=== PATIENT | female | born 1940 | race Caucasian/White ===

== ENCOUNTER 2023-03-04 14:50 | Outpatient (AMB) | payer MEDICARE, SELFPAY ==
--- NOTE | 2023-03-04 15:20 | MHC.OFFVIS ---
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: Memory Loss (11/20 LVM+LTR)-Confirmed Intake Note: Patient presents for a New patient visit-Memory loss Public Health Registrar Required: No Accompanied by: Self / Same As Patient Allergies No Known Allergies Allergy (Verified 03/04/23 15:21) Medication List - Last Reconciled 03/04/23 by SUBHASH Ibrahim glucosamine-chondroitin 167-133 mg caps PO TID levothyroxine 75 mcg PO DAILY magnesium oxide 400 mg PO DAILY multivitamin 1 tab PO DAILY omeprazole 20 mg PO DAILY pravastatin 20 mg PO DAILY sertraline 100 mg PO DAILY HPI HPI Comments History of Present Illness Details 82-yr-old female presents for neurological evaluation of cognitive difficulties, however pt is most concerned w/ her difficulty sleeping. Pt reports she is having age-related memory changes. She lives alone. Her has in 2010. Her dtr and son lives close by. She states she is Ind w/ ADLs, IADLs, lawn care, etc. She does drive- denies any near accidents. Denies difficulty paying her bills. Denies difficulties managing her medications- does use a pill box. She may occasionally misplace her phone. She is most concerned about her sleep, which started about a yr ago. She does not increased stress in the last yr- sister is ill, family issues. She easily falls asleep, but has trouble staying asleep- sometimes to void and may or may not easily fall back asleep. Goes to bed around 7:30pm and gets up at 4:30am. She becomes tired in the afternoon- sits in her recliner, may doze off a bit. She starts winding down around 5pm. Coffee intake- 3 coffees/ per day between 5-7am. 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 Tried Melatonin- did not help. Denies snoring, acid reflux, dry mouth, gasping arousals, nocturnal leg cramps. Voids 0-1 x per night. Has never had a sleep study- she is not interested. She was having very brief sharp pains in various spots in the head- this is better since trying Magnesium. She does yoga and stretching programs at the [facility]. She wants to start doing the elliptical again- felt better when she was doing that. 11/07/22, MRI Brain w/o: IMPRESSION: 1. Mild parenchymal volume loss/atrophy. 2. 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 3. Loss of the nondominant right vertebral artery flow-void which may be due to slow flow secondary to upstream stenosis or occlusion. 2019, Echocardiogram: Summary Normal LV systolic function (EF 55-65%). Normal LV diastolic function. Normal LV size. Normal LV wall thickness. Normal RV systolic function. Normal size RV. The inferior vena cava is collapsed (suggestive of low CVP). [facility] Medical History (Updated 03/09/23 @ 17:26 by SUBHASH Ibrahim) Cold sore OAB (overactive bladder) Ruptured silicone breast implant Hypothyroidism History of retinal vein occlusion Surgical History (Updated 03/09/23 @ 17:26 by SUBHASH Ibrahim) H/O mastopexy History of breast augmentation History of hysterectomy History of cataract surgery H/O eye surgery History of knee replacement Family History Mother Lung cancer Father Cancer Brother Cancer Social History (Updated 03/04/23 @ 15:30 by Kourtney Villanueva MA) Alcohol intake: never Patient Tobacco Use Status: Never used Tobacco Use of substances other than those prescribed or required for medical reasons: No Review of Systems Const All systems reviewed & are unremarkable except as noted in HPI and below Physical Exam Vital Signs: Last Vital Signs Pulse 103 H 03/04/23 15:27 BP 120/70 03/04/23 15:27 Pulse Ox 95 03/04/23 15:27 Oxygen Delivery Method Room Air 03/04/23 15:27 BMI result Body Mass Index 25.3 Const General: cooperative and no acute distress Orientation/consciousness: patient oriented x3 HEENT Head: Yes normocephalic Resp Effort & Inspection: normal respiratory effort and able to speak in complete sentences Neuro General: patient oriented x3, CN's II-XI intact bilaterally and deep tendon reflexes 2+ bilaterally Gait exam (Neuro): Normal gait present Motor exam (neuro): 5/5 motor strength present throughout Psych Appearance: grossly normal Mental Status: mental status grossly normal Speech and movement: Normal speech and movement present Affect: normal affect Attitude: cooperative Thought process: Normal thought process present Assessment & Plan Assessment & Plan (1) Sleep difficulties: Code(s): G47.9 - Sleep disorder, unspecified (2) Short-term memory loss: Code(s): R41.3 - Other amnesia (3) Memory loss: Code(s): R41.3 - Other amnesia (4) Headache: Code(s): R51.9 - Headache, unspecified Plan Pt advised to undergo: CT angio head/neck to further assess loss of right vertebral artery flow void seen on recent MRI. Labs for common etiologies of STM loss/difficulties. Will do MMSE/clock testing in f/u. Trial Trazodone 25-50mg qhs for sleep. Continue Magnesium 400-500mg qhs. Monitor headaches Futire considerations- sleep study. f/u in 3-4 months or sooner prn Orders: Orders Folate 03/04/23 E78.5 - Hyperlipidemia, unspecified, R41.3 - Other amnesia, R51.9 - Headache, unspecified Erythrocyte Sedimentation Rate 03/04/23 E78.5 - Hyperlipidemia, unspecified, R41.3 - Other amnesia, R51.9 - Headache, unspecified Complete Blood Count Auto Diff 03/04/23 E78.5 - Hyperlipidemia, unspecified, R41.3 - Other amnesia, R51.9 - Headache, unspecified Comprehensive Met. Panel 03/04/23 E78.5 - Hyperlipidemia, unspecified, R41.3 - Other amnesia, R51.9 - Headache, unspecified CT angio head neck 03/04/23 E78.5 - Hyperlipidemia, unspecified, I65.01 - Occlusion and stenosis of right vertebral artery, R41.3 - Other amnesia, R51.9 - Headache, unspecified, Z86.79 - Personal history of other diseases of the circulatory system Vitamin B12 and Folate 03/04/23 E78.5 - Hyperlipidemia, unspecified, R41.3 - Other amnesia, R51.9 - Headache, unspecified CRP High Sensitivity 03/04/23 E78.5 - Hyperlipidemia, unspecified, R41.3 - Other amnesia, R51.9 - Headache, unspecified [place] Reflex Titer and Pattern 03/04/23 E78.5 - Hyperlipidemia, unspecified, R41.3 - Other amnesia, R51.9 - Headache, unspecified Homocysteine 03/04/23 E78.5 - Hyperlipidemia, unspecified, R41.3 - Other amnesia, R51.9 - Headache, unspecified Methylmalonic Acid 03/04/23 E78.5 - Hyperlipidemia, unspecified, R41.3 - Other amnesia, R51.9 - Headache, unspecified Medications: New trazodone 25 - 50 mg (0.5 - 1 x 50 mg) PO BEDTIME 30 days PRN 30 tabs 0RF sleep Coding Level of Care Code New Pt Level 4 (98707) Diagnoses Sleep difficulties G47.9 Short-term memory loss R41.3 Memory loss R41.3 Headache R51.9
[2023-03-04 15:27] VITALS: BP 120/70; PULSE 103; O2SAT 95; BMI 25.3
== END 2023-03-04 16:28 | disposition home or self-care (01) ==
PROVIDERS: PCP Internal Medicine; Visit Provider Nurse Practitioner Family
DX: G47.9 Sleep disorder, unspecified (principal); R41.3 Other amnesia; R51.9 Headache, unspecified
CPT/HCPCS: 99204

== ENCOUNTER → 2023-03-04 14:50 | Outpatient (BNVA) | payer MEDICARE, SELFPAY | PROVIDERS: PCP Internal Medicine; Visit Provider Nurse Practitioner Family | DX: G47.9 Sleep disorder, unspecified (principal); R41.3 Other amnesia; R51.9 Headache, unspecified | CPT/HCPCS: 99202 ==

== ENCOUNTER → 2023-06-10 14:03 | Outpatient (AMB) | payer MEDICARE, SELFPAY ==
--- NOTE | 2023-06-10 14:04 | MHC.OFFVIS ---
Intake Visit Reasons: F/u -Conf TELE as bad weather expected Intake Note: Patient presents for follow up. non issues or concerns today Allergies No Known Allergies Allergy (Verified 06/10/23 14:04) Medication List - Last Reconciled 06/10/23 by SUBHASH Ibrahim glucosamine-chondroitin 167-133 mg caps PO TID levothyroxine 75 mcg PO DAILY magnesium oxide 400 mg PO DAILY multivitamin 1 tab PO DAILY omeprazole 20 mg PO DAILY pravastatin 20 mg PO DAILY sertraline 100 mg PO DAILY trazodone 25 - 50 mg (0.5 - 1 x 50 mg) PO BEDTIME PRN 30 days HPI Comments Details: 82-yr-old female presents for f/u telephone visit. Head and Neck CTA- No high grade stenosis or occlusion. Left vertebral predominant circulation, right vertebral patent but congenitally small. 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 Her lab results were unremarkable. Lipid panel- WNL. States her memory is stable. She is trying to eat well. Headaches are better since starting Magnesium. She did not try Trazodone, was worried about s/e. She did try CBD, and now is trying to sleep on her own. She goes to bed around 9pm after reading and wakes up at 4am. She is doing yoga and balance exercise. She has not been doing her elliptical- waiting to have an attachment placed to allow her to read a book while on the elliptical. 04/15/23, CT Angio Head FINDINGS: CTA OF THE NECK: Arch: There is a two vessel aortic arch, with common origin of the brachiocephalic artery and left common carotid artery. There is mild atherosclerotic plaque of the aortic arch, but origins of the supra aortic vessels are patent. Right carotid system: The common carotid and cervical internal carotid arteries are patent. There is minimal calcified atherosclerotic plaque at the carotid bifurcation, but no ICA stenosis (0%) by NASCET criteria. Left carotid system: The common carotid and cervical internal carotid arteries are patent. There is minimal calcified atherosclerotic plaque at the carotid bifurcation, but no ICA stenosis (0%) by NASCET criteria. Proximal common carotid is partially obscured by streak artifact from the adjacent contrast bolus. There is a left-dominant vertebral artery system. Right vertebral: The right vertebral artery is congenitally small though patent. There is no significant stenosis. Left vertebral: Patent. Other: Soft tissues and bones: No evidence of lymphadenopathy or mass. Thyroid gland is small and heterogeneous. Visualized lung apices are clear. Advanced degenerative changes are seen in the spine with severe disc space narrowing from C4-C7 were endplate sclerotic changes are seen. There is also osseous fusion across the C4-5 disc space and right sided facets with mild multilevel facet spurring. CTA OF THE HEAD: Anterior circulation: Calcified plaque is seen along the intracranial ICAs without significant narrowing. The anterior cerebral arteries and bilateral M1 and proximal M2 branches are patent and normal in caliber. Posterior circulation: The right vertebral artery is hypoplastic after giving off PICA, which is a normal variant. The left vertebral artery is normal in caliber. Both PICA origins are patent. The basilar artery, superior cerebellar arteries, and posterior cerebral arteries are patent with suggestion of a tiny left posterior communicating artery. Veins: The major dural venous sinuses are not well opacified due to early phase of contrast enhancement. Other: Soft tissues and bones: No midline shift or effacement of the basal cisterns. No space-occupying hemorrhage. There is an old infarct involving the right anterior caudate body and adjacent rahman radiata. No acute territorial loss of fuentes-white matter differentiation. There have been lens extractions bilaterally. No significant opacification in the paranasal sinuses or mastoid air cells. IMPRESSION: No proximal occlusion or high grade stenosis in the major arteries of the head and neck. Specifically, the right vertebral artery is patent though congenitally small. 11/07/22, MRI Brain w/o:IMPRESSION: FINDINGS: BRAIN and EXTRA-AXIAL SPACES: The cerebellar tonsils lie at the level of the foramen magnum. There is mild prominence of the ventricles and subarachnoid spaces/sulci. 12 mm arachnoid cyst within the left cavum septum lucidum. This is unchanged and of doubtful significance. Loss of the nondominant right vertebral artery flow-void is noted. There is no restricted diffusion or abnormal susceptibility to indicate hemorrhage. A punctate calcification is present within the right side of the fourth ventricle. Mild-moderate scattered patchy and discrete FLAIR bright foci are present within the [place] and supratentorial white matter. 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 EXTRACRANIAL SOFT TISSUES: There have been lens replacements bilaterally. Paranasal sinuses and mastoids are unremarkable. BONES: Severe loss of height of C5-C6 and C6-C7. T1 hypointensity involving the inferior C5 vertebral body correlates with sclerotic change on the prior CT scan of the cervical spine. Impression: 1. Mild parenchymal volume loss/atrophy. 2. 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 3. Loss of the nondominant right vertebral artery flow-void which may be due to slow flow secondary to upstream stenosis or occlusion. 2019, Echocardiogram: Summary Normal LV systolic function (EF 55-65%). Normal LV diastolic function. Normal LV size. Normal LV wall thickness. Normal RV systolic function. Normal size RV. The inferior vena cava is collapsed (suggestive of low CVP). [facility] Medical History (Updated 06/28/23 @ 18:19 by SUBHASH Ibrahim) Cold sore OAB (overactive bladder) Ruptured silicone breast implant Hypothyroidism History of retinal vein occlusion Surgical History (Updated 03/09/23 @ 17:26 by SUBHASH Ibrahim) H/O mastopexy History of breast augmentation History of hysterectomy History of cataract surgery H/O eye surgery History of knee replacement Family History Mother Lung cancer Father Cancer Brother Cancer Social History (Updated 03/04/23 @ 15:30 by Kourtney Villanueva MA) Alcohol intake: never Patient Tobacco Use Status: Never used Tobacco Physical Exam Const General: cooperative and no acute distress Orientation/consciousness: patient oriented x3 Resp Effort & Inspection: normal respiratory effort and able to speak in complete sentences Neuro General: patient oriented x3 Cognition (Neuro): normal cognition Psych Mental Status: mental status grossly normal Affect: normal affect Attitude: cooperative Telehealth Telehealth Location of provider rendering services: practice address Location of patient: address on file Patient Identification confirmed using: Name, : Yes Telehealth method: voice only Patient verbally consented to treatment: Yes Patient verbally consented to billing insurance company: Yes Patient informed of any privacy concerns related to visit: Yes Minutes spent on Phone/Video with Pt.: 12 Assessment & Plan Assessment & Plan (1) Headache: Code(s): R51.9 - Headache, unspecified Category: Medical (2) Sleep difficulties: Code(s): G47.9 - Sleep disorder, unspecified Category: Medical (3) Memory loss: Code(s): R41.3 - Other amnesia Category: Medical (4) Multiple lacunar infarcts: Comment: Chronic bilateral lacunar infarcts are present at the thalamocapsular junctions Code(s): I63.81 - Other cerebral infarction due to occlusion or stenosis of small artery Category: Medical (5) History of CVA (cerebrovascular accident): Comment: Head CTA: 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 Start ASA 81mg qhs for secondary stroke prevention. Offered to schedule sleep study- pt declines at this time. Will do MMSE/clock testing in f/u. ? Hold Trazodone 25-50mg qhs for sleep. Continue Magnesium 400-500mg qhs. Continue optimizing sleep hygiene. Monitor headaches ? f/u in 6 months or sooner prn Medications: New aspirin 81 mg PO DAILY 30 tabs 6RF 30 days
== END ==
PROVIDERS: PCP Physician Assistant Medical; Visit Provider Nurse Practitioner Family
DX: R51.9 Headache, unspecified (principal); G47.9 Sleep disorder, unspecified; R41.3 Other amnesia; I63.81 Other cerebral infarction due to occlusion or stenosis of small artery; Z86.73 Personal history of transient ischemic attack (TIA), and cerebral infarction without residual deficits
CPT/HCPCS: 99442

== ENCOUNTER → 2023-06-10 14:03 | Outpatient (BNVA) | payer MEDICARE, SELFPAY | PROVIDERS: PCP Physician Assistant Medical; Visit Provider Nurse Practitioner Family ==